=== PATIENT | male | born 1990 | race Two or more races ===

== ENCOUNTER 2024-06-10 09:16 | Emergency (ER) | payer OTHER ==
[~2024-06-10] VITALS: Ht 167.6 cm; Wt 68.0 kg
[2024-06-10] MEDS ORDERED: PROAIR RESPICL90 MCG IH (09:34)
[2024-06-10] MEDS ORDERED: BUDESONIDE 0.5 MG/2 ML AMPUL.NEB IH STA (09:53)
[2024-06-10] MEDS ORDERED: LEVALBUTEROL HCL 1.25 MG/3 ML SOLUTION IH STA (09:53)
[2024-06-10] MEDS ORDERED: METHYLPREDNISOLONE SOD SUCC 125 MG VIAL IV STA (09:54)
[2024-06-10] MEDS ORDERED: METHYLPREDNISOLONE SOD SUCC 40 MG VIAL ONE (10:29)
[2024-06-10] MEDS ORDERED: LEVALBUTEROL HCL 0.63 MG/3 ML SOLUTION IH ONE (10:35)
[2024-06-10] MEDS ORDERED: BUDESONIDE 0.5 MG/2 ML AMPUL.NEB IH ONE (10:35)
[2024-06-10 10:46] LABS: ABG PH 7.389 (7.35-7.45); ABG pCO2 46.8 mmHg (35-45); BICARBONATE 27.6 mmol/l (23-25); SaO2 96.5 %; Tco2 29.1 mmol/l
[2024-06-10 10:47] LABS: HEMATOCRIT 49.4 % (39.0-48.0); HEMOGLOBIN 15.9 g/dL (13-16.00); MEAN CELL VOLUME 79.9 fL (80.0-100.00); MEAN CORPUSCULAR HEMOGLOBIN 25.7 pg (27.00-32.0); MEAN CORPUSCULAR HGB CONC 32.2 g/dl (32.0-36.0); PLATELET COUNT 193 K/uL (150-450); RED BLOOD COUNT 6.18 M/uL (4.00-6.00); RED CELL DISTRIBUTION WIDTH 14.4 % (11.5-14.5)
[2024-06-10 11:11] LABS: COVID-19 AG NEGATIVE (NEGATIVE); INFLUENZA A AG NEGATIVE (NEGATIVE)
[2024-06-10 11:21] LABS: CALCIUM 9.5 mg/dL (8.5-10.1); CREATININE SERUM 0.94 mg/dL (0.70-1.30); GFR 92.42; POTASSIUM 4.35 mEq/L (3.5-5.1)
[2024-06-10 12:36] LABS: allen test SATISFACTORY; o2 21 %; puncture site RADIAL RIGHT
== END 2024-06-10 12:19 | disposition home or self-care (01) ==
LOC: ER 09:17
PROVIDERS: General Practice
DX: J20.9 Acute bronchitis, unspecified (principal); Z20.822 Contact with and (suspected) exposure to COVID-19